=== PATIENT | male | born 1980 | race Hispanic/Latino ===

== ENCOUNTER 2021-02-06 21:20 | Emergency (ER) | payer SELFPAY ==
--- NOTE | 2021-02-07 00:55 | EDPHYS ---
Physician Documentation [facility] Name: Bogdan Watters Jr Age: 40 yrs Sex: Male : 1980 Arrival Date: 02/06/2021 Time: 21:21 Bed 12 Private MD: DHEERAJ Physician Tien Shay HPI: 02/07 00:27 This 40 yrs old Male presents to ER via Ambulatory with complaints of Sore kb Throat. 00:27 The patient presents with sore throat. The patient describes throat pain as constant. kb Onset: The symptoms/episode began/occurred yesterday. Severity of symptoms: At their worst the symptoms were mild, in the emergency department the symptoms are unchanged. Modifying factors: The symptoms are alleviated by nothing, the symptoms are aggravated by nothing, Patient's oral intake status: good. Associated signs and symptoms: Pertinent positives: Sore throat Pertinent negatives chest pain, chills, cough, diarrhea, dysphagia, earache, fever, flu-like symptoms, headache, nausea, rhinorrhea, shortness of breath, vomiting. The patient has not experienced similar symptoms in the past. The patient has not recently seen a physician. Ports scratchy throat started yesterday. Today became more painful. Denies cough fever chills congestion. Historical: - Allergies: 02/06 22:27 No Known Allergies; kg - Home Meds: 22:27 None [Active]; kg - PMHx: 22:27 None; kg - PSHx: 22:27 surgery on ring finger left hand; kg - Immunization history:: Adult Immunizations not up to date, Client reports having NOT received the Covid vaccine. - Social history:: Smoking status: Patient denies any tobacco usage or history of. ROS: 02/07 00:26 Constitutional: Negative for fever, chills, and weight loss. kb ENT: Positive for sore throat. All other systems are negative. Exam: 00:27 Constitutional: This is a well developed, well nourished patient who is awake, alert, kb and in no acute distress. Head/Face: Normocephalic, atraumatic. Respiratory: Respirations even and unlabored. No increased work of breathing, no retractions or nasal flaring. Skin: Warm, dry with normal turgor. Normal color. MS/ Extremity: Pulses equal, no cyanosis. Neurovascular intact. Full, normal range of motion. Neuro: Awake and alert, GCS 15, oriented to person, place, time, and situation. Moves all extremities. Normal gait. Psych: Awake, alert, with orientation to person, place and time. Behavior, mood, and affect are within normal limits. 00:27 ENT: Posterior pharynx: Airway: normal, no evidence of obstruction, Tonsils: are normal in appearance, erythema, that is moderate. Vital Signs: 02/06 22:25 BP 129 / 75; Pulse 71; Resp 20; Temp 97.8(O); Pulse Ox 98% on R/A; Weight 104.33 kg kg (R); Height 5 ft. 11 in. (180.34 cm); Pain 5/10; 23:45 BP 113 / 80; Pulse 55; Resp 16 S; Temp 97.3(O); Pulse Ox 100% on R/A; Pain 0/10; bb 02/07 01:04 BP 114 / 78; Pulse 66; Resp 16 S; Pulse Ox 100% on R/A; bb 02/06 22:25 Body Mass Index 32.08 (104.33 kg, 180.34 cm) kg MDM: 02/06 23:39 Patient medically screened. kb 02/07 00:25 Data reviewed: vital signs, nurses notes. Data interpreted: Pulse oximetry: on room air kb is 100 %. Interpretation: normal. Counseling: I had a detailed discussion with the patient and/or guardian regarding: the historical points, exam findings, and any diagnostic results supporting the discharge/admit diagnosis, lab results, the need for outpatient follow up, a family practitioner, to return to the emergency department if symptoms worsen or persist or if there are any questions or concerns that arise at home. 02/06 22:31 Order name: Strep; Complete Time: 23:56 kg 02/06 23:56 Order name: Throat Culture EDMS 02/07 00:55 Order name: SARS-COV-2 RT PCR; Complete Time: 00:55 EDMS Administered Medications: No medications were administered Disposition Summary: 02/07/21 00:54 Discharge Ordered Location: Home kb Condition: Stable kb Diagnosis - Coronavirus infection, unspecified kb Followup: kb - With: Emergency Department - When: As needed - Reason: Worsening of condition Followup: kb - With: Private Physician - When: 2 - 3 days - Reason: Recheck today's complaints, Continuance of care, Re-evaluation by your physician Discharge Instructions: - Discharge Summary Sheet kb - Viral Respiratory Infection, [id number] kb - COVID-19 kb Forms: - Medication Reconciliation Form kb - Thank You Letter kb - Antibiotic Education kb - Prescription Opioid Use kb Addendum: 02/08/2021 05:56 Co-signature as Attending Physician, Tien Shay MD. [facility] Signatures: Dispatcher [employer] EDLeanne Varghese, [employer]kb Tien Shay MD MD [id number] Talya Sutherland, RN RN kg Corrections: (The following items were deleted from the chart) 02/06 22:28 22:27 PSHx: None; kg kg 23:30 22:31 CORONAVIRUS+MR.LAB.BRZ ordered. [facility]
--- NOTE | 2021-02-07 00:55 | ER ---
Nurse's Notes [facility] Name: Bogdan Watters Jr Age: 40 yrs Sex: Male : 1980 Arrival Date: 02/06/2021 Time: 21:21 Bed 12 Private MD: Diagnosis: Coronavirus infection, unspecified Presentation: 02/06 22:25 Chief complaint: Patient states: Scratchy throat starting today, pain with swallowing. kg Coronavirus screen: Client denies travel out of the [place] in the last 14 days. At this time, unable to obtain information related to travel outside the [place] At this time, the client does not indicate any symptoms associated with coronavirus-19. Ebola Screen: Patient negative for fever greater than or equal to 101.5 degrees Fahrenheit, and additional compatible Ebola Virus Disease symptoms Patient denies exposure to infectious person. Patient denies travel to an Ebola-affected area in the 21 days before illness onset. No symptoms or risks identified at this time. Initial Sepsis Screen: Does the patient meet any 2 criteria? No. Patient's initial sepsis screen is negative. Does the patient have a suspected source of infection? No. Patient's initial sepsis screen is negative. Risk Assessment: Do you want to hurt yourself or someone else? Patient reports no desire to harm self or others. Onset of symptoms was February 06, 2021. 22:25 Method Of Arrival: Ambulatory kg 22:25 Acuity: JUNE 4 kg Triage Assessment: 23:46 General: Appears in no apparent distress. Pain: Complains of pain in throat. bb 23:47 General: Behavior is calm, cooperative. bb Historical: - Allergies: 22:27 No Known Allergies; kg - Home Meds: 22:27 None [Active]; kg - PMHx: 22:27 None; kg - PSHx: 22:27 surgery on ring finger left hand; kg - Immunization history:: Adult Immunizations not up to date, Client reports having NOT received the Covid vaccine. - Social history:: Smoking status: Patient denies any tobacco usage or history of. Screenin:27 Abuse screen: Denies threats or abuse. Denies injuries from another. Nutritional kg screening: No deficits noted. Tuberculosis screening: No symptoms or risk factors identified. Fall Risk None identified. No fall in past 12 months (0 pts). No secondary diagnosis (0 pts). No IV (0 pts). Ambulatory Aid- None/Bed Rest/Nurse Assist (0 pts). Gait- Normal/Bed Rest/Wheelchair (0 pts) Mental Status- Oriented to own ability (0 pts). Total Allen Fall Scale indicates No Risk (0-24 pts). Assessment: 22:29 Respiratory: Airway is patent Respiratory effort is even, unlabored, relaxed, Breath kg sounds are clear bilaterally. EENT: Throat is pink Parent/caregiver reports the patient having difficulty swallowing since 02/06. 23:45 Reassessment: Patient is alert, oriented x 3, equal unlabored respirations, skin bb warm/dry/pink. awaiting diagnostic results. 02/07 01:05 Reassessment: Patient is alert, oriented x 3, equal unlabored respirations, skin bb warm/dry/pink. pt verbalized understanding of and agrees to plan of care discharge instructions given pt ambulated with steady gait to exit. Vital Signs: 02/06 22:25 BP 129 / 75; Pulse 71; Resp 20; Temp 97.8(O); Pulse Ox 98% on R/A; Weight 104.33 kg kg (R); Height 5 ft. 11 in. (180.34 cm); Pain 5/10; 23:45 BP 113 / 80; Pulse 55; Resp 16 S; Temp 97.3(O); Pulse Ox 100% on R/A; Pain 0/10; bb 02/07 01:04 BP 114 / 78; Pulse 66; Resp 16 S; Pulse Ox 100% on R/A; bb 02/06 22:25 Body Mass Index 32.08 (104.33 kg, 180.34 cm) kg ED Course: 02/06 21:21 Patient arrived in ED. ds1 22:27 Triage completed. kg 22:27 Patient has correct armband on for positive identification. kg 23:38 Leanne Hamilton FNP-C is PHCP. kb 23:38 Tien Shay MD is Attending Physician. kb 23:46 No provider procedures requiring assistance completed. Patient did not have IV access bb during this emergency room visit. 23:47 Bisi Chavis, RADAMES is Primary Nurse. bb 23:47 Patient placed in an exam room. bb Administered Medications: No medications were administered Outcome: 02/07 00:54 Discharge ordered by . erickson 01:06 Discharged to home ambulatory. bb 01:06 Condition: stable 01:06 Discharge instructions given to patient, Instructed on discharge instructions, follow up and referral plans. Demonstrated understanding of instructions, follow-up care. 01:06 Patient left the ED. bb Signatures: Leanne Hamilton FNP-C FNP-Sumi Parker ds1 Bisi Chavis RN RN bb Talya Sutherland RN RN kg Corrections: (The following items were deleted from the chart) 02/06 22:28 22:27 PSHx: None; kg kg
[2021-02-07 01:42] VITALS: TEMP 97.3; O2SAT 100
[2021-02-07 01:45] VITALS: BP 114/78
== END 2021-02-07 01:06 | disposition home or self-care (01) ==
LOC: ER 21:20
DX: U07.1 COVID-19 (principal)
CPT/HCPCS: 87070; 87081; 99281; U0003

== ENCOUNTER 2021-02-21 12:54 | Emergency (ER) | payer SELFPAY ==
--- NOTE | 2021-02-21 13:08 | ER ---
Nurse's Notes [facility] Name: Bogdan Watters Jr Age: 40 yrs Sex: Male : 1980 Arrival Date: 02/21/2021 Time: 12:55 Bed Waiting Private MD: Diagnosis: Encounter for screening, unspecified Presentation: 02/21 12:57 Chief complaint: Patient states: Was positive one week ago and wanted to recheck to see kg if he's still positive. No symptoms. Coronavirus screen: Client reports previous positive COVID test result. Date of collection: February 07, 2021. Ebola Screen: Patient negative for fever greater than or equal to 101.5 degrees Fahrenheit, and additional compatible Ebola Virus Disease symptoms Patient denies exposure to infectious person. Patient denies travel to an Ebola-affected area in the 21 days before illness onset. Initial Sepsis Screen: Does the patient meet any 2 criteria? No. Patient's initial sepsis screen is negative. Does the patient have a suspected source of infection? No. Patient's initial sepsis screen is negative. Risk Assessment: Do you want to hurt yourself or someone else? Patient reports no desire to harm self or others. Onset of symptoms is unknown. 12:57 Method Of Arrival: Ambulatory kg 12:57 Acuity: JUNE 5 kg Historical: - Allergies: 13:01 No Known Allergies; kg - Home Meds: 13:01 None [Active]; kg - PMHx: 13:01 None; kg - PSHx: 13:01 surgery on ring finger left hand; kg - Immunization history:: Adult Immunizations not up to date, Client reports having NOT received the Covid vaccine. - Social history:: Smoking status: Patient denies any tobacco usage or history of. Screenin:02 Abuse screen: Denies threats or abuse. Denies injuries from another. Nutritional kg screening: No deficits noted. Tuberculosis screening: No symptoms or risk factors identified. Fall Risk None identified. Vital Signs: 12:57 BP 127 / 91; Pulse 101; Resp 20; Temp 98.4(O); Pulse Ox 100% ; Weight 104.33 kg; Height kg 5 ft. 11 in. (180.34 cm); Pain 0/10; 12:57 Body Mass Index 32.08 (104.33 kg, 180.34 cm) kg ED Course: 12:55 Patient arrived in ED. as 12:55 [facility] Hamilton [facility]C [facility]. kb 12:55 Clifton Weir MD is Attending Physician. kb 13:01 Triage completed. kg 13:02 Patient has correct armband on for positive identification. kg Administered Medications: No medications were administered Outcome: 13:07 Discharge ordered by . kb 13:22 Patient left the ED. iw Signatures: Leanne Hamilton FNP-C FNP-Geeta Evangelista as Suha Sy, RN RN iw Talya Sutherland, RADAMES RN kg
--- NOTE | 2021-02-21 13:08 | EDPHYS ---
Physician Documentation [facility] Name: Bogdan Watters Jr Age: 40 yrs Sex: Male : 1980 Arrival Date: 02/21/2021 Time: 12:55 Bed Waiting Private MD: ED Physician Clifton Weir HPI: 02/21 14:13 This 40 yrs old Male presents to ER via Ambulatory with complaints of Covid kb Test. 14:13 Pt reports he tested positive for covid 2 weeks ago. Came in today to get retested so kb he can return to work. States he went to [facility], but it takes a few days to get results. Reports he is asymptomatic. Onset: The symptoms/episode began/occurred 2 week(s) ago. Severity of symptoms: At their worst the symptoms were mild in the emergency department the symptoms have resolved. The patient has not experienced similar symptoms in the past. The patient has not recently seen a physician. Historical: - Allergies: 13:01 No Known Allergies; kg - Home Meds: 13:01 None [Active]; kg - PMHx: 13:01 None; kg - PSHx: 13:01 surgery on ring finger left hand; kg - Immunization history:: Adult Immunizations not up to date, Client reports having NOT received the Covid vaccine. - Social history:: Smoking status: Patient denies any tobacco usage or history of. ROS: 14:12 Constitutional: Negative for fever, chills, and weight loss. kb 14:12 All other systems are negative. Exam: 14:12 Constitutional: This is a well developed, well nourished patient who is awake, alert, kb and in no acute distress. Head/Face: Normocephalic, atraumatic. ENT: Moist Mucous membranes Respiratory: Respirations even and unlabored. No increased work of breathing, no retractions or nasal flaring. Skin: Warm, dry with normal turgor. Normal color. MS/ Extremity: Pulses equal, no cyanosis. Neurovascular intact. Full, normal range of motion. Neuro: Awake and alert, GCS 15, oriented to person, place, time, and situation. Moves all extremities. Normal gait. Psych: Awake, alert, with orientation to person, place and time. Behavior, mood, and affect are within normal limits. Vital Signs: 12:57 BP 127 / 91; Pulse 101; Resp 20; Temp 98.4(O); Pulse Ox 100% ; Weight 104.33 kg; Height kg 5 ft. 11 in. (180.34 cm); Pain 0/10; 12:57 Body Mass Index 32.08 (104.33 kg, 180.34 cm) kg MDM: 12:55 Patient medically screened. kb 14:12 Data reviewed: vital signs, nurses notes. Data interpreted: Pulse oximetry: on room air kb is 100 %. Interpretation: normal. Counseling: I had a detailed discussion with the patient and/or guardian regarding: the historical points, exam findings, and any diagnostic results supporting the discharge/admit diagnosis, the need for outpatient follow up, a family practitioner, to return to the emergency department if symptoms worsen or persist or if there are any questions or concerns that arise at home. Administered Medications: No medications were administered Disposition: 13:07 Encounter for COVID retest. kb 18:07 Co-signature as Attending Physician, Clifton Weir MD I agree with the assessment and alejandra plan of care. Disposition Summary: 02/21/21 13:07 Discharge Ordered Location: Home kb Condition: Stable kb Diagnosis - Encounter for screening, unspecified kb Followup: kb - With: Emergency Department - When: As needed - Reason: Worsening of condition Followup: kb - With: Private Physician - When: 2 - 3 days - Reason: Recheck today's complaints, Continuance of care, Re-evaluation by your physician Forms: - Medication Reconciliation Form kb - Thank You Letter kb - Antibiotic Education kb - Prescription Opioid Use kb Signatures: Leanne Hamilton, ABBIE-Harmony SHEFFIELDP-Nolanb Clifton Weir MD MD cha Graham, Kristen, RN RN kg Corrections: (The following items were deleted from the chart) 14:14 14:13 Pt reports he tested positive for covid 2 weeks ago. Came in today to get kb retested so he can return to work. States he went to [facility], but it takes a few days to get results. . kb
[2021-02-21 13:29] VITALS: BP 127/91; TEMP 98.4; O2SAT 100
== END 2021-02-21 13:22 | disposition home or self-care (01) ==
LOC: ER 12:54
DX: Z20.822 Contact with and (suspected) exposure to COVID-19 (principal); Z86.16 Personal history of COVID-19
CPT/HCPCS: 99281